=== PATIENT | female | born 1985 | race Caucasian/White ===

== ENCOUNTER 2024-05-23 09:35 | Outpatient (CLI) | payer BC, SELFPAY ==
[2024-05-23 15:10] LABS: Chlamydia DNA Amplified* NOT DETECTED (No Detected); GC DNA Amplified* NOT DETECTED (No Detected)
== END 2024-05-23 09:36 | disposition home or self-care (01) ==
PROVIDERS: Visit Provider Physician Assistant
DX: Z11.3 Encounter for screening for infections with a predominantly sexual mode of transmission (principal); N92.6 Irregular menstruation, unspecified
CPT/HCPCS: 84443; 87491; 87591

== ENCOUNTER 2024-06-13 09:05 | Outpatient (CLI) | payer BC, SELFPAY ==
--- NOTE | 2024-06-13 09:15 | CRLHL7_ITS ---
For Patients: As a result of the Century Cures Act, medical imaging exams and procedure reports are released immediately into your electronic medical record. You may view this report before your referring provider. If you have questions, please contact your health care provider. INDICATION: Irregular menstruation COMPARISON: none TECHNIQUE: 2D morales scale and color Doppler images were acquired of the pelvis using a transabdominal and transvaginal approach. FINDINGS: Sonographic images demonstrate a normal size and smooth outer contour of the uterus. Uterus measures 9.0 cm in length by 5.0 cm in AP diameter by 6.2 cm in transverse dimension. The myometrium has a normal uniform echotexture. The endometrial lining appears normal and measures 5 mm in composite thickness. The right ovary measures 5.3 x 1.9 x 2.8 cm in size and the left ovary measures 8.6 x 4.1 x 7.4 cm. The ovaries demonstrate normal arterial and venous blood flow on color Doppler analysis. Left ovarian cyst is present containing mostly anechoic internal echotexture with mild layering debris. No internal vascularity or thick septation. This cyst measures 7.3 x 3.7 x 6.9 cm. IMPRESSION: Endometrial thickness 5 millimeters. Mildly complex left ovarian cyst measures 7.3 x 3.7 x 6.9 cm. Dictated by Adma Palmer MD @ 06/13/2024 4:45:28 PM (Electronically Signed)
--- NOTE | 2024-06-13 09:45 | CRLHL7_ITS ---
For Patients: As a result of the Century Cures Act, medical imaging exams and procedure reports are released immediately into your electronic medical record. You may view this report before your referring provider. If you have questions, please contact your health care provider. BILATERAL SCREENING MAMMOGRAM WITH COMPUTER-AIDED DETECTION AND TOMOSYNTHESIS TECHNIQUE: CC and MLO views were obtained. These mammographic images have been obtained using full-field digital technique. These mammographic images were interpreted with the benefit of computer-aided detection. Breast Tomosynthesis was used in this interpretation. COMPARISON FILM: Baseline. FINDINGS: The breasts are extremely dense, which lowers the sensitivity of mammography. IMPRESSION: There is no radiographic evidence for malignancy. ASSESSMENT: BI-RADS Category 1: Negative RECOMMENDATION: Routine screening mammogram in 1 year. A lay language report of this examination will be provided to the patient. Adam Palmer M.D. Diagnostic Radiologist [email or web address] SP/Dictated by: Adam Palmer MD @ 06/16/2024 11:29:00 AM (Electronically Signed)
== END 2024-06-13 09:06 | disposition home or self-care (01) ==
LOC: US 09:05
PROVIDERS: Visit Provider Physician Assistant
DX: Z12.31 Encounter for screening mammogram for malignant neoplasm of breast (principal); R92.333 Mammographic heterogeneous density, bilateral breasts; N92.6 Irregular menstruation, unspecified; N92.0 Excessive and frequent menstruation with regular cycle; R93.89 Abnormal findings on diagnostic imaging of other specified body structures; N83.202 Unspecified ovarian cyst, left side
CPT/HCPCS: 76830; 76856; 77063; 77067

== ENCOUNTER 2024-06-22 08:57 | Outpatient (CLI) | payer BC, SELFPAY | END 2024-06-22 08:58 | disposition home or self-care (01) | PROVIDERS: Visit Provider Obstetrics & Gynecology | DX: N92.0 Excessive and frequent menstruation with regular cycle (principal); N83.202 Unspecified ovarian cyst, left side | CPT/HCPCS: 86304 ==

== ENCOUNTER 2024-07-27 10:26 | Outpatient (CLI) | payer BC, SELFPAY ==
--- NOTE | 2024-07-27 10:45 | CRLHL7_ITS ---
For Patients: As a result of the Century Cures Act, medical imaging exams and procedure reports are released immediately into your electronic medical record. You may view this report before your referring provider. If you have questions, please contact your health care provider. INDICATION: Follow-up left ovarian cyst COMPARISON: Pelvic ultrasound from 06/13/2024. FINDINGS: Transvaginal and transabdominal ultrasound examination of the female pelvis was performed. Initial examination is performed with transabdominal technique and transvaginal technique is used for better visualization of the pelvic structures. The uterus is anteverted with no evidence of mass. It measures 9.5 x 4.4 x 5.7 cm. The endometrial lining is normal in thickness at 7 mm. The right ovary is normal in size and appearance. It measures 4.6 x 2.6 x 3.3 centimeters. The left ovary is again seen to be enlarged by a complex left ovarian cyst with a small amount of dependent debris. The cyst has minimally decreased in size, now measuring 7.2 x 4.0 x 5.2 centimeters, previously measuring 7.3 x 3.7 x 6.9 centimeters. There is normal color and pulse doppler flow in both ovaries. There is no sign of free fluid in the pelvis. IMPRESSION: 1. Minimal decrease in size of complex left ovarian cyst with a small amount of dependent debris. The maximal diameter is stable at 7.2 centimeters, but the other dimensions are decreased 2. Normal appearance of the rest of the female pelvis. Dictated by Adria Acosta MD @ 07/27/2024 11:24:37 PM (Electronically Signed)
== END 2024-07-27 10:27 | disposition home or self-care (01) ==
LOC: US 10:27
PROVIDERS: Visit Provider Obstetrics & Gynecology
DX: N83.202 Unspecified ovarian cyst, left side (principal)
CPT/HCPCS: 76830; 76856

== ENCOUNTER 2025-02-07 09:13 | Outpatient (CLI) | payer BC, SELFPAY ==
--- NOTE | 2025-02-07 09:15 | CRLHL7_ITS ---
For Patients: As a result of the Century Cures Act, medical imaging exams and procedure reports are released immediately into your electronic medical record. You may view this report before your referring provider. If you have questions, please contact your health care provider. INDICATION: Follow-up left ovarian cyst COMPARISON: 07/27/2024 TECHNIQUE: 2D morales-scale and color Doppler images were acquired of the pelvis using a transabdominal and transvaginal approach. Transvaginal imaging performed to better visualize the endometrial stripe and ovaries. FINDINGS: Sonographic images demonstrate a normal size and smooth outer contour of the uterus. Uterus measures 9.7 cm in length by 5.0 cm in AP diameter by 6.1 cm in transverse dimension. The myometrium has a normal uniform echotexture. The endometrial lining appears normal and measures 5 mm in composite thickness. The right ovary measures 5.6 x 2.3 x 2.3 cm in size and the left ovary measures 8.1 x 3.9 x 6.6 cm. The ovaries demonstrate normal arterial and venous blood flow on color Doppler analysis. There are no suspicious fluid collections within the cul-de-sac. Simple circumscribed left ovarian cyst measures 7.6 x 3.8 x 5.5 cm. Previously, this measured 7.2 x 4.0 x 5.2 cm. No internal color Doppler flow. No solid component. IMPRESSION: Similar morphology and size of the simple left ovarian cyst which measures 7.6 cm. Dictated by Adam Palmer MD @ 02/07/2025 10:27:43 AM (Electronically Signed)
== END 2025-02-07 09:14 | disposition home or self-care (01) ==
LOC: US 09:16
PROVIDERS: Visit Provider Obstetrics & Gynecology
DX: N83.202 Unspecified ovarian cyst, left side (principal)
CPT/HCPCS: 76830; 76856

== ENCOUNTER 2025-03-24 06:01 | Day surgery (SDC) | payer BC, SELFPAY ==
[2025-03-24] VITALS (16 sets, daily range): BP systolic 112–135; BP diastolic 75–92; PULSE 75–90; RESP 16–20; TEMP 36.2–36.8; O2SAT 96–113; BMI 21.6
[2025-03-24 06:41] LABS: Ur HCG Qualitative* Negative (Negative)
[2025-03-24] MEDS: LACTATED RINGERS 1000 ML 1,000 ML 100 ML IV (06:43)
[2025-03-24] MEDS: SODIUM CHLORIDE 0.9 % (FLUSH) 10 ML SYRINGE IVF (06:43)
[2025-03-24 06:47] LABS: Hemoglobin* 13.0 gm/dL (12.0-16.0)
--- NOTE | 2025-03-24 07:20 | W.PM.H&PU_ITS ---
History & Physical Update History & Physical Update H&P Reviewed and patient assessed: No changes noted H&P Updates: Ms. Sosa is seen in pre-op prior to planned laparoscopic ovarian cystectomy and IUD insertion. No interval change to her health history or questions today. We again reviewed the risks, benefits and alternatives to the planned procedure. Written consent was re-signed. She affirmed her desire to proceed with IUD insertion, discussed Mirena vs Paragard and has elected for Mirena. Post- procedure restrictions and expectations reviewed. Pre-op labs reviewed and are within normal limits. No perioperative antibiotics indicated.
[2025-03-24] MEDS: BUPIVACAINE 0.5% 30 ML INJECTION (08:13)
--- NOTE | 2025-03-24 09:41 | P.ANES_ITS ---
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
--- NOTE | 2025-03-24 09:41 | W.ANESCHARGE ---
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
--- NOTE | 2025-03-24 12:06 | P.GYNPRC_ITS ---
Procedure Note Date of procedure: 03/24/25 [facility] bill your pro fee for this procedure?: Yes Pre-op diagnosis: Left adnexal cyst Contraception management Post-op diagnosis: Same as above Suspected endometriosis Procedure: Laparoscopic left ovarian cystectomy Excision of endometriosis IUD insertion Anesthesia: GETA Complications: None Surgeon: Vivian Turner MD Estimated blood loss (mL): 100 IV fluids (mL): 700 Urine Output (mL): 50 Pathology: specimen obtained, sent to pathology Condition: stable Disposition: same day Findings: Unremarkable uterus, bilateral fallopian tubes and right ovary Left ovary is enlarged, secondary to known simple cyst Suspected endometriosis nodules noted in the posterior cul-de-sac Procedure Description: Patient was taken to the operating room with IV running. She was positioned in dorsal lithotomy position with her legs fully supported in Yellowfin stirrups. General anesthesia was administered. She was prepped and draped in the usual sterile fashion. A surgical time out was held to confirm patient and procedure. Bowen catheter inserted in a sterile fashion. Pelvic exam was completed, speculum inserted where cervix appears unremarkable. Cervix was gently dilated to accommodate Quu manipulator manipulator was advanced applied to the anterior cervix. Tenaculum removed. Attention was then turned to the abdomen. A 12 mm infraumbilical incision was made with a scalpel and carried down to the underlying layer of fascia with the hemostat. The fascia was grasped with Romain clamps and elevated, fascial incision made with scalpel. A curved hemostat was utilized to enter peritoneum and gently stretch fascial incision. The fascia was tagged with 0 vicryl and straights removed. Jaramillo trocar was introduced to the peritoneal cavity, balloon inflated. 10mm camera inserted and high flow initiated. Pneumoperitoneum was achieved, where careful attention was paid below site of entry - no injury or bleeding noted. Upper abdominal survey was completed, revealing normal yrn kem. Patient was put into Trendelenburg, pelvic survey noted normal uterus, bilateral fallopian tubes and ovaries. Two clusters of suspected endometriosis was noted in the posterior cul-de-sac. Two additional port sites were created, first in the right lower quadrant 2cm superior and medial to the ASIS. 5mm skin incision was made and trocar advanced under direct visualization with rotation and gentle pressure. Careful attention was paid to avoid the inferior epigastric vessels, superficial skin vasculature and the bowel on entry. Obturator removed, balloon inflated. The same was completed on the left. An additional port was created on the right in order to triangulate towards the left-sided adnexal pathology, a hand's breath above the existing left trocar - nearly lateral to the umbilicus. Attention was turned to the left ovary, which was stabilized with a grasper. Plane between normal ovarian tissue and cyst was easily identified. A incision was made overlying the cyst body with electrocautery. Marissa graspers were utilized to dissect a plane between the cyst wall from normal ovarian stroma. As dissection ensued, cyst rupture did occur with drainage of clear fluid. This was readily evacuated with suction sock lining stitcher. Dissection to free the cyst continued, by applying traction to the cyst wall to peel it away from the underlying ovary. Dissection continued until the entirety of the cyst wall was noted to be free. The cyst wall was removed and set aside for pathologic evaluation. Entire cyst bed was inspected where no residual cyst wall was noted. Oozing was noted throughout the cyst bed. Hemostasis was obtained with liberal use of electrocautery across the cyst bed. Excellent improvement was noted. Attention was then turned to the posterior cul-de-sac to the previously mentioned suspected endometriosis implants. A Marissa grasper was utilized to picker machine operator the peritoneum at the site of these implants, where laparoscopic scissors were utilized to excise just the peritoneal implants of endometriosis. Two biopsies were performed in this area, sent together for pathologic evaluation. The left ovarian cyst bed was again inspected, where no brisk bleeding was noted. Scant areas were again addressed with electrocautery as needed. The cyst cavity was packed with surgicel and Sherman x2 were applied to aid with hemostasis. Low pressure test was completed where pneumoperitoneum was taken down, hemostasis again was assured. Procedure was deemed complete. The balloons of all port sites were deflated, and all ports were removed after pneumoperitoneum was released. Existing 0 Vicryl fascial tags were tied together, confirming closure of the umbilical fascia. The skin of each port site was closed in a subcuticular fashion with 3-0 Monocryl. Surgical glue was applied above this. Returned to the bottom. Speculum inserted, where Hulka manipulator was removed from the uterus. Hemostasis was noted from this site. Tenaculum was applied to the anterior lip of the cervix, where the cervix required no further dilation to easily accommodate uterine sound. Sounding length of 8 cm. Mirena IUD was sterilely loaded into the insertion tube, inserted to the sounding depth and deployed. Insertion tube was removed. Strings were trimmed to 3 cm. Tenaculum removed, hemostasis noted. Speculum removed. Bowen catheter removed. Patient tolerated procedure well and was taken to recovery area in stable condition. EBL 100 mL, UOP 50 mL, IVF 700 mL. Confirmed specimens sent to pathology including left ovarian cyst wall and posterior cul-de-sac biopsies (suspected endometriosis).
== END 2025-03-24 12:05 | disposition home or self-care (01) ==
LOC: OR 06:04
PROVIDERS: Visit Provider Obstetrics & Gynecology
PROC: (CPT 58662; principal; 2025-03-24 07:15)
DX: N83.292 Other ovarian cyst, left side (principal); N80.329 Endometriosis of the posterior cul-de-sac, unspecified depth; Z30.430 Encounter for insertion of intrauterine contraceptive device
CPT/HCPCS: 58662; 58300; 00840; 36415; 81025; 85018; 86850; 86900; 86901; 88305; J0330; J0665; J1100; J2250; J2405; J2704; J2710; J3010; J3490; J7120; J7298

== ENCOUNTER 2025-08-23 08:08 | Outpatient (CLI) | payer BC, SELFPAY ==
--- NOTE | 2025-08-23 08:15 | CRLHL7_ITS ---
For Patients: As a result of the Cures Act, medical imaging exams and procedure reports are released immediately into your electronic medical record. You may view this report before your referring provider. If you have questions, please contact your health care provider. INDICATION: BILATERAL SCREENING MAMMMOGRAM, ASYMPTOMATIC 39 Y/O FEMALE COMPARISON: 06/13/2024 TECHNIQUE: Digital mammogram in CC and MLO projections including computer-aided detection (CAD) and tomosynthesis. BREAST COMPOSITION: The breasts are heterogeneously dense, which may obscure small masses. FINDINGS: No suspicious findings. ASSESSMENT: BI-RADS 1 Negative RECOMMENDATION: Annual screening mammogram. A lay language report of this examination will be provided to the patient. Dictated by: Adam Palmer MD @ 08/23/2025 09:15:07 (Electronically Signed)
== END 2025-08-23 08:09 | disposition home or self-care (01) ==
LOC: MAMMO 08:08
PROVIDERS: Visit Provider Physician Assistant
DX: Z12.31 Encounter for screening mammogram for malignant neoplasm of breast (principal); R92.333 Mammographic heterogeneous density, bilateral breasts
CPT/HCPCS: 77063; 77067